=== PATIENT | female | born 1945 | race Caucasian/White ===

== ENCOUNTER 2022-10-09 11:49 | Inpatient (IN) | payer MEDICARE ==
[2022-10-09 12:58] LABS: #Eosinphils 0.1 10x3/uL (0.0-0.5); #Monocytes 0.4 10x3/uL (0.0-1.1); #Neutrophils 4.5 10x3/uL (1.5-8.4); %Basophils 0.3 % (0.0-2.0); %Eosinophils 2.1 % (0.0-6.0); %Monocytes 6.4 % (0.0-10.0); %Neutrophils 73.5 % (40.0-75.0); Hemoglobin 13.2 g/dL (12.0-15.5); Mean Corpuscular HGB CONC 33.3 g/dL (32.0-36.0); Mean Corpuscular Volume 96.1 fl (81.6-98.3); Platelet Count 155 10x3/uL (150-450); RBC Distribution Width 13.5 % (11.5-14.5); Red Blood Cell (RBC) Count 4.12 10x6/uL (3.90-5.03); White Blood Cell (WBC) Count 6.1 10x3/uL (3.5-10.5)
[2022-10-09 13:21] LABS: ALT (SGPT) 45 U/L (8-55); AST (SGOT) 44 U/L (5-34); Albumin 4.3 g/dL (3.4-4.8); Alkaline Phosphatase 132 U/L (40-110); Anion Gap 14 mmol/L (10-20); BUN (Urea Nitrogen) 27 mg/dL (9.8-20.1); Bilirubin, Total 0.5 mg/dL (0.2-1.2); Calc. Creatinine Clearance 0 mL/min (70-130); Calcium 9.7 mg/dL (7.8-10.44); Carbon Dioxide 23 mmol/L (23-31); Chloride 109 mmol/L (98-107); Estimated GFR 61; Globulin 2.3 g/dL (2.4-3.5); Glucose 98 mg/dL (83-110); Potassium 4.5 mmol/L (3.5-5.1); Protein, Total 6.6 g/dL (5.8-8.1); Sodium 141 mmol/L (136-145)
[2022-10-09] MEDS ORDERED: Boostrix 0.5 ML (Tdap) VIAL (>/=7 yrs of age) ONE (14:32)
[2022-10-09] MEDS ORDERED: Fentanyl 100 MCG/2 ML VIAL ONE (14:32)
[2022-10-09] MEDS ORDERED: Ondansetron PF 4 MG/2 ML Vial IVP PRN (14:42)
[2022-10-09] MEDS ORDERED: Bisacodyl 10 MG SUPP PR PRN (14:42)
[2022-10-09] MEDS ORDERED: Milk Of Magnesia 30 ML UDCUP PO PRN (14:42)
[2022-10-09] MEDS ORDERED: Ondansetron ODT 4 MG TAB PO PRN (14:42)
[2022-10-09] MEDS ORDERED: HYDROcodone/Acetaminophen 5/325 mg Tablet ONE (15:51)
[2022-10-09 15:56] LABS: INR-International Normal Ratio 1.2; PTT 28.6 sec (22.0-33.0); Prothrombin Time 12.7 sec (9.5-12.1)
[2022-10-09 17:52] VITALS: BMI 29.2
[2022-10-09] MEDS: traMADol HCl 50 MG TAB PO PRN (18:29)
[2022-10-09] MEDS: Pregabalin 50 MG CAP PO SCH (20:45)
[2022-10-09] MEDS: Hydroxychloroquine Sulfate 200 MG TAB PO SCH (20:46)
[2022-10-09] MEDS: HYDROcodone/Acetaminophen 5/325 mg Tablet PO PRN (23:42)
[2022-10-10 05:30] LABS: #Eosinphils 0.2 10x3/uL (0.0-0.5); #Monocytes 0.5 10x3/uL (0.0-1.1); #Neutrophils 4.3 10x3/uL (1.5-8.4); %Basophils 0.3 % (0.0-2.0); %Lymphocytes 16.1 % (18.0-47.0); %Monocytes 8.6 % (0.0-10.0); %Neutrophils 71.7 % (40.0-75.0); Hemoglobin 11.6 g/dL (12.0-15.5); Mean Corpuscular HGB CONC 33.3 g/dL (32.0-36.0); Mean Corpuscular Hemoglobin 31.9 pg (27.0-33.0); Mean Corpuscular Volume 95.6 fl (81.6-98.3); Mean Platelet Volume 11.6 fl (7.4-10.4); Platelet Count 132 10x3/uL (150-450); RBC Distribution Width 13.5 % (11.5-14.5); Red Blood Cell (RBC) Count 3.64 10x6/uL (3.90-5.03)
[2022-10-10 05:47] LABS: Anion Gap 13 mmol/L (10-20); BUN (Urea Nitrogen) 27 mg/dL (9.8-20.1); Calc. Creatinine Clearance 69 mL/min (70-130); Calcium 8.9 mg/dL (7.8-10.44); Carbon Dioxide 22 mmol/L (23-31); Chloride 109 mmol/L (98-107); Estimated GFR 73; Glucose 89 mg/dL (83-110); Potassium 4.2 mmol/L (3.5-5.1); Sodium 140 mmol/L (136-145)
[2022-10-10] MEDS: Levothyroxine Sodium 75 MCG TAB PO SCH (08:43)
[2022-10-10] MEDS: Hydroxychloroquine Sulfate 200 MG TAB PO SCH ×2 (08:43→20:13)
[2022-10-10] MEDS ORDERED: Losartan Potassium 50 MG TAB PO SCH (10:00)
[2022-10-10] MEDS: HYDROcodone/Acetaminophen 5/325 mg Tablet PO PRN ×3 (10:23→20:12)
[2022-10-10] MEDS: Pregabalin 50 MG CAP PO SCH (20:12)
[2022-10-10] MEDS: Losartan Potassium 50 MG TAB PO SCH (20:13)
[2022-10-10] MEDS: Folic Acid 1 MG TAB PO SCH (20:13)
[2022-10-11] MEDS: HYDROcodone/Acetaminophen 5/325 mg Tablet PO PRN ×5 (04:06→23:56)
[2022-10-11 04:55] LABS: Anion Gap 13 mmol/L (10-20); BUN (Urea Nitrogen) 23 mg/dL (9.8-20.1); Calc. Creatinine Clearance 68 mL/min (70-130); Calcium 8.9 mg/dL (7.8-10.44); Carbon Dioxide 25 mmol/L (23-31); Chloride 104 mmol/L (98-107); Estimated GFR 72; Glucose 104 mg/dL (83-110); Potassium 4.3 mmol/L (3.5-5.1); Sodium 138 mmol/L (136-145)
[2022-10-11 04:57] LABS: #Eosinphils 0.2 10x3/uL (0.0-0.5); #Monocytes 0.7 10x3/uL (0.0-1.1); #Neutrophils 6.1 10x3/uL (1.5-8.4); %Basophils 0.3 % (0.0-2.0); %Eosinophils 2.8 % (0.0-6.0); %Lymphocytes 11.1 % (18.0-47.0); %Monocytes 8.9 % (0.0-10.0); %Neutrophils 76.8 % (40.0-75.0); Mean Corpuscular HGB CONC 32.7 g/dL (32.0-36.0); Mean Corpuscular Hemoglobin 31.1 pg (27.0-33.0); Mean Corpuscular Volume 95.1 fl (81.6-98.3); Mean Platelet Volume 11.6 fl (7.4-10.4); Platelet Count 141 10x3/uL (150-450); RBC Distribution Width 13.4 % (11.5-14.5); Red Blood Cell (RBC) Count 3.86 10x6/uL (3.90-5.03); White Blood Cell (WBC) Count 7.9 10x3/uL (3.5-10.5)
[2022-10-11] MEDS: Hydroxychloroquine Sulfate 200 MG TAB PO SCH ×2 (06:26→20:39)
[2022-10-11] MEDS: Levothyroxine Sodium 75 MCG TAB PO SCH (06:27)
[2022-10-11] MEDS ORDERED: Promethazine HCl 25 MG/ML VIAL IM PRN (07:18)
[2022-10-11] MEDS ORDERED: Ondansetron HCl/PF 4 MG/2 ML Vial IVP PRN (07:18)
[2022-10-11] MEDS ORDERED: Promethazine HCl 25 MG/ML VIAL IVPB PRN (07:18)
[2022-10-11] MEDS ORDERED: Lidocaine 2% PF 5 ML VIAL ONE (07:25)
[2022-10-11] MEDS ORDERED: Rocuronium Bromide 10 MG/ML (10ML VIAL) ONE (07:25)
[2022-10-11] MEDS ORDERED: Bupivacaine PF 0.5% 30 ML VIAL ONE (07:25)
[2022-10-11] MEDS ORDERED: PROPOFOL 20 ML ONE (07:25)
[2022-10-11] MEDS ORDERED: EPINEPHrine 1 MG/ML AMP ONE (07:25)
[2022-10-11] MEDS ORDERED: Fentanyl 100 MCG/2 ML VIAL ONE ×2 (07:25→09:19)
[2022-10-11] MEDS ORDERED: CEFAZOLIN 1 GM VIAL ONE (08:13)
[2022-10-11] MEDS ORDERED: PHENYLEPHRINE-NS 100 MCG/ML 10 ML SYRINGE ONE (08:23)
[2022-10-11] MEDS ORDERED: Glycopyrrolate 0.2 MG/ML 5 ML SYRINGE ONE (08:52)
[2022-10-11] MEDS ORDERED: Ondansetron PF 4 MG/2 ML Vial ONE (08:52)
[2022-10-11] MEDS ORDERED: Dexamethasone 4 mg/ml Vial ONE (08:52)
[2022-10-11] MEDS ORDERED: PSYLLIUM HUSK 0.4 GM PO SCH (09:00)
[2022-10-11] MEDS: Floranex 1 GM Packet PO SCH (10:28)
[2022-10-11] MEDS ORDERED: Cepastat Lozenges 1 LOZ PO PRN (11:56)
[2022-10-11] MEDS: CEFAZOLIN 2 GM in Sodium Chloride 0.9% 100 ML IVPB SCH ×3 (15:55→23:55)
[2022-10-11] MEDS: Pregabalin 50 MG CAP PO SCH (20:36)
[2022-10-11] MEDS: Folic Acid 1 MG TAB PO SCH (20:37)
[2022-10-11] MEDS: Losartan Potassium 50 MG TAB PO SCH (20:37)
[2022-10-12] MEDS: CEFAZOLIN 2 GM in Sodium Chloride 0.9% 100 ML IVPB SCH (00:10)
[2022-10-12] MEDS: HYDROcodone/Acetaminophen 5/325 mg Tablet PO PRN ×4 (05:18→20:40)
[2022-10-12 05:21] LABS: #Monocytes 0.9 10x3/uL (0.0-1.1); #Neutrophils 8.8 10x3/uL (1.5-8.4); %Basophils 0.1 % (0.0-2.0); %Eosinophils 0.4 % (0.0-6.0); %Lymphocytes 6.7 % (18.0-47.0); %Monocytes 8.2 % (0.0-10.0); %Neutrophils 84.3 % (40.0-75.0); Hemoglobin 10.5 g/dL (12.0-15.5); Mean Corpuscular HGB CONC 33.7 g/dL (32.0-36.0); Mean Corpuscular Hemoglobin 32.1 pg (27.0-33.0); Mean Corpuscular Volume 95.4 fl (81.6-98.3); Mean Platelet Volume 12.2 fl (7.4-10.4); Platelet Count 148 10x3/uL (150-450); RBC Distribution Width 13.4 % (11.5-14.5); Red Blood Cell (RBC) Count 3.27 10x6/uL (3.90-5.03); White Blood Cell (WBC) Count 10.5 10x3/uL (3.5-10.5)
[2022-10-12 05:24] LABS: Anion Gap 12 mmol/L (10-20); BUN (Urea Nitrogen) 30 mg/dL (9.8-20.1); Calc. Creatinine Clearance 44 mL/min (70-130); Calcium 8.7 mg/dL (7.8-10.44); Carbon Dioxide 24 mmol/L (23-31); Chloride 103 mmol/L (98-107); Estimated GFR 43; Glucose 126 mg/dL (83-110); Sodium 134 mmol/L (136-145)
[2022-10-12] MEDS: Hydroxychloroquine Sulfate 200 MG TAB PO SCH ×2 (09:36→20:42)
[2022-10-12] MEDS: Apixaban 5 MG TAB PO SCH ×2 (09:39→20:42)
[2022-10-12] MEDS: Levothyroxine Sodium 75 MCG TAB PO SCH (09:41)
[2022-10-12] MEDS: Floranex 1 GM Packet PO SCH (09:47)
[2022-10-12] MEDS: Sodium Chloride 0.9% 1,000 ML IV SCH ×2 (13:10→20:58)
[2022-10-12] MEDS: Folic Acid 1 MG TAB PO SCH (20:42)
[2022-10-12] MEDS: Losartan Potassium 50 MG TAB PO SCH (20:44)
[2022-10-12] MEDS: Pregabalin 50 MG CAP PO SCH (20:56)
[2022-10-13] MEDS: Sodium Chloride 0.9% 1,000 ML IV SCH ×2 (03:35→15:11)
[2022-10-13 04:37] LABS: Anion Gap 11 mmol/L (10-20); BUN (Urea Nitrogen) 38 mg/dL (9.8-20.1); Calc. Creatinine Clearance 46 mL/min (70-130); Calcium 8.1 mg/dL (7.8-10.44); Carbon Dioxide 23 mmol/L (23-31); Chloride 106 mmol/L (98-107); Estimated GFR 45; Glucose 97 mg/dL (83-110); Potassium 4.6 mmol/L (3.5-5.1); Sodium 135 mmol/L (136-145)
[2022-10-13] MEDS: Morphine 4 MG/ML VIAL SLOW IVP PRN ×3 (04:38→15:45)
[2022-10-13 04:44] LABS: #Eosinphils 0.4 10x3/uL (0.0-0.5); #Monocytes 0.8 10x3/uL (0.0-1.1); #Neutrophils 5.8 10x3/uL (1.5-8.4); %Basophils 0.2 % (0.0-2.0); %Eosinophils 4.6 % (0.0-6.0); %Lymphocytes 14.8 % (18.0-47.0); %Monocytes 10.1 % (0.0-10.0); %Neutrophils 70.1 % (40.0-75.0); Hemoglobin 9.5 g/dL (12.0-15.5); Mean Corpuscular HGB CONC 33.2 g/dL (32.0-36.0); Mean Corpuscular Hemoglobin 31.8 pg (27.0-33.0); Mean Corpuscular Volume 95.7 fl (81.6-98.3); Mean Platelet Volume 11.9 fl (7.4-10.4); Platelet Count 142 10x3/uL (150-450); RBC Distribution Width 13.6 % (11.5-14.5); Red Blood Cell (RBC) Count 2.99 10x6/uL (3.90-5.03); White Blood Cell (WBC) Count 8.3 10x3/uL (3.5-10.5)
[2022-10-13] MEDS: HYDROcodone/Acetaminophen 5/325 mg Tablet PO PRN ×3 (06:45→17:54)
[2022-10-13] MEDS: Floranex 1 GM Packet PO SCH (09:12)
[2022-10-13] MEDS: Levothyroxine Sodium 75 MCG TAB PO SCH (09:13)
[2022-10-13] MEDS: Apixaban 5 MG TAB PO SCH ×2 (09:13→20:18)
[2022-10-13] MEDS: Hydroxychloroquine Sulfate 200 MG TAB PO SCH ×2 (09:18→20:18)
[2022-10-13] MEDS: Pregabalin 50 MG CAP PO SCH (20:06)
[2022-10-13] MEDS: traMADol HCl 50 MG TAB PO PRN (20:08)
[2022-10-13] MEDS: Folic Acid 1 MG TAB PO SCH (20:17)
[2022-10-13] MEDS: Losartan Potassium 50 MG TAB PO SCH (20:17)
[2022-10-14] MEDS: Sodium Chloride 0.9% 1,000 ML IV SCH (01:47)
[2022-10-14] MEDS: Morphine 4 MG/ML VIAL SLOW IVP PRN (04:03)
[2022-10-14] MEDS: HYDROcodone/Acetaminophen 5/325 mg Tablet PO PRN ×4 (04:36→22:10)
[2022-10-14 04:55] LABS: #Eosinphils 0.3 10x3/uL (0.0-0.5); #Monocytes 0.8 10x3/uL (0.0-1.1); #Neutrophils 4.9 10x3/uL (1.5-8.4); %Basophils 0.4 % (0.0-2.0); %Eosinophils 4.5 % (0.0-6.0); %Lymphocytes 15.2 % (18.0-47.0); %Monocytes 10.8 % (0.0-10.0); %Neutrophils 68.8 % (40.0-75.0); Hemoglobin 9.8 g/dL (12.0-15.5); Mean Corpuscular Hemoglobin 31.4 pg (27.0-33.0); Mean Corpuscular Volume 95.2 fl (81.6-98.3); Mean Platelet Volume 11.4 fl (7.4-10.4); Platelet Count 166 10x3/uL (150-450); RBC Distribution Width 13.5 % (11.5-14.5); Red Blood Cell (RBC) Count 3.12 10x6/uL (3.90-5.03); White Blood Cell (WBC) Count 7.1 10x3/uL (3.5-10.5)
[2022-10-14 05:02] LABS: Anion Gap 12 mmol/L (10-20); BUN (Urea Nitrogen) 31 mg/dL (9.8-20.1); Calc. Creatinine Clearance 65 mL/min (70-130); Calcium 8.5 mg/dL (7.8-10.44); Carbon Dioxide 21 mmol/L (23-31); Chloride 108 mmol/L (98-107); Estimated GFR 68; Glucose 97 mg/dL (83-110); Potassium 4.7 mmol/L (3.5-5.1); Sodium 136 mmol/L (136-145)
[2022-10-14] MEDS: Hydroxychloroquine Sulfate 200 MG TAB PO SCH ×2 (08:18→19:45)
[2022-10-14] MEDS: Levothyroxine Sodium 75 MCG TAB PO SCH (08:20)
[2022-10-14] MEDS: Floranex 1 GM Packet PO SCH (08:20)
[2022-10-14] MEDS: Apixaban 5 MG TAB PO SCH ×2 (08:20→19:45)
[2022-10-14] MEDS: Pregabalin 50 MG CAP PO SCH (19:44)
[2022-10-14] MEDS: Folic Acid 1 MG TAB PO SCH (19:45)
[2022-10-14] MEDS: Losartan Potassium 50 MG TAB PO SCH (19:45)
[2022-10-15] MEDS: Morphine 4 MG/ML VIAL SLOW IVP PRN (05:46)
[2022-10-15] MEDS: Hydroxychloroquine Sulfate 200 MG TAB PO SCH ×2 (08:39→20:25)
[2022-10-15] MEDS: HYDROcodone/Acetaminophen 5/325 mg Tablet PO PRN ×3 (08:39→20:24)
[2022-10-15] MEDS: Levothyroxine Sodium 75 MCG TAB PO SCH (08:39)
[2022-10-15] MEDS: Apixaban 5 MG TAB PO SCH ×2 (08:39→20:24)
[2022-10-15] MEDS: Floranex 1 GM Packet PO SCH (08:41)
[2022-10-15] MEDS: Pregabalin 50 MG CAP PO SCH (20:23)
[2022-10-15] MEDS: Folic Acid 1 MG TAB PO SCH (20:25)
[2022-10-15] MEDS: Losartan Potassium 50 MG TAB PO SCH (20:25)
[2022-10-16] MEDS: HYDROcodone/Acetaminophen 5/325 mg Tablet PO PRN ×2 (05:05→14:49)
[2022-10-16] MEDS: Levothyroxine Sodium 75 MCG TAB PO SCH (05:05)
[2022-10-16] MEDS: Apixaban 5 MG TAB PO SCH ×2 (09:35→21:25)
[2022-10-16] MEDS: Hydroxychloroquine Sulfate 200 MG TAB PO SCH ×2 (09:36→21:26)
[2022-10-16] MEDS: Floranex 1 GM Packet PO SCH (09:48)
[2022-10-16] MEDS: Folic Acid 1 MG TAB PO SCH (21:25)
[2022-10-16] MEDS: Losartan Potassium 50 MG TAB PO SCH (21:25)
[2022-10-16] MEDS: Pregabalin 50 MG CAP PO SCH (21:26)
[2022-10-17] MEDS: Apixaban 5 MG TAB PO SCH (10:13)
[2022-10-17] MEDS: Levothyroxine Sodium 75 MCG TAB PO SCH (10:14)
[2022-10-17] MEDS: Hydroxychloroquine Sulfate 200 MG TAB PO SCH (10:14)
[2022-10-17] MEDS: Floranex 1 GM Packet PO SCH (10:16)
[2022-10-17 12:01] VITALS: TEMP 98.4
[2022-10-17] MEDS: HYDROcodone/Acetaminophen 5/325 mg Tablet PO PRN (13:59)
[2022-10-17 14:26] VITALS: BP 139/67
== END 2022-10-17 14:15 | DRG 481 ==
LOC: CSHERS 11:49 → CSHTELE 17:37
PROVIDERS: ADMIT Family Medicine; ATTEND Internal Medicine
PROC: 0QH704Z Insertion of Internal Fixation Device into Left Upper Femur, Open Approach (ICD-10-PCS; principal; 2022-10-11)
PROC: 0QS7XZZ Reposition Left Upper Femur, External Approach (ICD-10-PCS; 2022-10-11)
DX: S72.142A Displaced intertrochanteric fracture of left femur, initial encounter for closed fracture (principal); D68.51 Activated protein C resistance; I10 Essential (primary) hypertension; J45.20 Mild intermittent asthma, uncomplicated; E03.9 Hypothyroidism, unspecified; M34.1 CR(E)ST syndrome; Z20.822 Contact with and (suspected) exposure to COVID-19; Z95.0 Presence of cardiac pacemaker; Z79.01 Long term (current) use of anticoagulants; Y93.01 Activity, walking, marching and hiking; Y92.015 Private garage of single-family (private) house as the place of occurrence of the external cause; W18.09XA Striking against other object with subsequent fall, initial encounter; M85.80 Other specified disorders of bone density and structure, unspecified site
CPT/HCPCS: 36415; 71045; 72170; 80048; 80053; 85025; 85610; 85730; 86850; 86900; 86901; 87811; 90471; 90715; 94760; 96374; C1713; J0171; J0690; J1100; J2001; J2270; J2405; J2704; J3010; J3490; J7050; S0020; U0003; U0005

== ENCOUNTER 2023-09-12 07:33 | Outpatient (CLI) | payer MEDICARE | END 2023-09-12 07:34 | disposition home or self-care (01) | LOC: CSHULT 07:33 | PROVIDERS: ATTEND Physician Assistant Medical | DX: R79.89 Other specified abnormal findings of blood chemistry (principal); Z90.49 Acquired absence of other specified parts of digestive tract; K83.8 Other specified diseases of biliary tract; N28.89 Other specified disorders of kidney and ureter; N28.1 Cyst of kidney, acquired | CPT/HCPCS: 76705 ==